=== PATIENT | female | born 1960 | race Caucasian/White ===

== ENCOUNTER 2017-05-22 08:01 | Day surgery (SDC) | payer OTHER ==
[~2017-05-22] VITALS: Ht 162.6 cm; Wt 68.0 kg
[~2017-05-22 08:01] MED LIST: CLARITIN,ALAVAR10 MG PO; FIBER GUMMIES1 EACH PO; LEXAPRO10 MG PO; OXYCODONE-APAP1 EACH PO; STRATTERA80 MG PO; ULTRA-LIGHT RO1 EACH MC; WELLBUTRIN XL300 MG PO
[2017-05-22 09:09] VITALS: BP 133/71
[2017-05-22 14:45] VITALS: BP 158/71
[2017-05-22 15:50] VITALS: BP 140/70
== END 2017-05-22 16:13 | disposition home or self-care (01) ==
LOC: SDC 08:01
PROC: 0SPB04Z Removal of Internal Fixation Device from Left Hip Joint, Open Approach (ICD-10-PCS; principal; 2017-05-22)
DX: T84.89XA Other specified complication of internal orthopedic prosthetic devices, implants and grafts, initial encounter (principal); Z87.891 Personal history of nicotine dependence; Z88.0 Allergy status to penicillin
CPT/HCPCS: 73552; 76000; J0131; J0330; J0690; J1100; J1170; J1200; J2250; J2405; J3010